=== PATIENT | female | born 1965 | race Caucasian/White ===

== ENCOUNTER 2018-10-01 18:28 | Emergency (ER) | payer BC, OTHER ==
[2018-10-01] MEDS ORDERED: KETOROLAC TROMETHAMINE 30MG/ML ONE (19:13)
== END 2018-10-01 19:38 | disposition home or self-care (01) ==
LOC: EDH 18:28
DX: S93.115A Dislocation of interphalangeal joint of left lesser toe(s), initial encounter (principal); X58.XXXA Exposure to other specified factors, initial encounter; Y93.89 Activity, other specified; Y92.69 Other specified industrial and construction area as the place of occurrence of the external cause; Y99.8 Other external cause status
CPT/HCPCS: 28660; 73630; 96372; 99284; J1885